=== PATIENT | male | born 1975 | race Two or more races ===

== ENCOUNTER 2023-04-10 20:24 | Emergency (ER) | payer OTHER ==
[2023-04-10 20:30] VITALS: BP 119/76; PULSE 90; RESP 18; TEMP 98.2; BMI 25.8
== END 2023-04-10 22:36 | disposition home or self-care (01) ==
LOC: JERFT 20:24
PROC: 0HQ1XZZ Repair Face Skin, External Approach (ICD-10-PCS; principal; 2023-04-10)
DX: S01.112A Laceration without foreign body of left eyelid and periocular area, initial encounter (principal); W22.8XXA Striking against or struck by other objects, initial encounter
CPT/HCPCS: 99282-25

== ENCOUNTER 2023-11-04 08:39 | Emergency (ER) | payer OTHER ==
[2023-11-04 08:56] VITALS: RESP 18; TEMP 99.5; BMI 25.8
[2023-11-04] MEDS ORDERED: ACETAMINOPHEN INJECTION 100 ML IVPB ONE (09:48)
[2023-11-04] MEDS: ACETAMINOPHEN 1000 MG/100 ML BAG IVPB ONE (10:09)
[2023-11-04] MEDS: SODIUM CHLORIDE 0.9% 500 ML INFUS.BAG IV ONE ×2 (10:09→11:00)
[2023-11-04 10:10] LABS: BASO % 0.9 % (0-2.0); EOS % 0.4 % (0-4.5); HEMATOCRIT 49.4 % (35.4-49); HEMOGLOBIN 17.1 GM/dL (11.7-16.9); LYMPH % 14.4 % (8-40); MCH 29.7 pg (25.7-33.7); MCHC 34.5 g/dl (32.0-35.9); MEAN PLT VOLUME 9.3 fl (7.5-11.1); MONO % 8.3 % (3.8-10.2); PLATELET COUNT 168 10^3/uL (134-434); RBC 5.75 M/mm3 (4.00-5.60); RDW 13.5 % (11.9-15.9); WHITE BLOOD COUNT 12.7 K/mm3 (4.0-10.0)
[2023-11-04 10:12] LABS: EPI CELLS 2 /uL (0-25.1); HYALINE CASTS 0 /uL (0-3.1); URINE APPEARANCE CLEAR; URINE BACTERIA 0 /uL (0-1359); URINE BILIRUBIN 1+ (NEGATIVE); URINE COLOR DK YELLOW; URINE GLUCOSE (UA) NEGATIVE (NEGATIVE); URINE KETONE 1+ (NEGATIVE); URINE LEUK ESTERASE TRACE (NEGATIVE); URINE NITRITE NEGATIVE (NEGATIVE); URINE PROTEIN 1+ (NEGATIVE); URINE RBC 14 /uL (0-23.9); URINE WBC 6 /uL (0-25.8)
[2023-11-04 10:24] LABS: INR 1.1 (0.83-1.09); PROTHROMBIN TIME (PATIENT) 12.4 SEC (9.7-13.0)
[2023-11-04 10:26] LABS: ACTIVATED PTT 31.7 SECONDS (25.2-36.5)
[2023-11-04 10:31] LABS: POTASSIUM 4.6 mmol/L (3.5-5.1)
[2023-11-04 10:33] LABS: ALBUMIN 3.7 g/dl (3.4-5.0); BLOOD UREA NITROGEN 12.4 mg/dL (7-18); CALCIUM 9.3 mg/dL (8.5-10.1); MAGNESIUM 2.2 mg/dL (1.8-2.4)
[2023-11-04 10:36] LABS: CREATININE 1.2 mg/dL (0.55-1.3)
[2023-11-04 10:37] LABS: BILIRUBIN,TOTAL 2.9 mg/dL (0.2-1); TOT PROT 7.7 g/dl (6.4-8.2)
[2023-11-04 12:59] LABS: BILIRUBIN,DIRECT 0.6 mg/dL (0.0-0.2)
[2023-11-04 13:55] VITALS: BP 114/83; PULSE 79
== END 2023-11-04 13:55 | disposition home or self-care (01) ==
LOC: JER 08:39
PROC: 3E033NZ Introduction of Analgesics, Hypnotics, Sedatives into Peripheral Vein, Percutaneous Approach (ICD-10-PCS; principal; 2023-11-04)
DX: R10.11 Right upper quadrant pain (principal); R53.1 Weakness; R50.9 Fever, unspecified; Z20.822 Contact with and (suspected) exposure to COVID-19
CPT/HCPCS: 0241U-QW; 36415; 71045-TC-FY; 76705-TC; 80053; 81003; 82248; 83690; 83735; 84484; 85025; 85610; 85730; 86850; 86900; 86901; 87086; 93005; 93010; 99285-25; J0131

== ENCOUNTER 2025-04-17 06:21 | Day surgery (SDC) | payer BC ==
[2025-04-10 08:43] VITALS: BMI 26.6
[2025-04-17 09:34] VITALS: TEMP 97.6
[2025-04-17 09:47] VITALS: RESP 18
[2025-04-17 10:19] VITALS: BP 128/82; PULSE 83
== END 2025-04-17 10:19 | disposition home or self-care (01) ==
LOC: JASU-ENDO 06:21
PROVIDERS: ATTEND Internal Medicine Gastroenterology
PROC: 0DBP8ZX Excision of Rectum, Via Natural or Artificial Opening Endoscopic, Diagnostic (ICD-10-PCS; 2025-04-17)
PROC: 0DBM8ZX Excision of Descending Colon, Via Natural or Artificial Opening Endoscopic, Diagnostic (ICD-10-PCS; principal; 2025-04-17 09:00)
DX: Z12.11 Encounter for screening for malignant neoplasm of colon (principal); D12.8 Benign neoplasm of rectum; D12.4 Benign neoplasm of descending colon